=== PATIENT | female | born 1965 | race Caucasian/White ===

== ENCOUNTER → 2017-10-22 | Outpatient (CLI) | payer OTHER ==
[~2017-10-22] MED LIST: CIPR500 PO; METR500 PO
== END | disposition home or self-care (01) ==
LOC: LAB 18:05 → LAB SHORT 18:05
DX: R30.0 Dysuria (principal)
CPT/HCPCS: 87086

== ENCOUNTER → 2019-04-17 | Outpatient (CLI) | payer OTHER | END | disposition home or self-care (01) | LOC: LAB 18:35 → LAB SHORT 18:35 | DX: R30.0 Dysuria (principal) | CPT/HCPCS: 87077; 87086; 87186 ==

== ENCOUNTER 2019-11-07 15:30 | Inpatient (IN) | payer OTHER ==
[~2019-11-07] VITALS: Ht 175.3 cm; Wt 71.2 kg
[2019-11-07] MEDS ORDERED: BC (15:46)
[2019-11-07 16:20] LABS: BASOPHILS ABSOLUTE AUTO 0.04 K/mm3 (0.00-0.23); BASOPHILS PERCENT AUTO 0 % (0-2); EOSINOPHILS ABSOLUTE AUTO 0.11 K/mm3 (0.00-0.68); EOSINOPHILS PERCENT AUTO 1 % (0-6); Hematocrit 38.7 % (33.0-51.0); Hemoglobin 12.8 g/dL (11.5-16.0); IMMATURE GRAN ABSOLUTE AUTO 0.11 K/mm3 (0.00-0.10); IMMATURE GRAN PERCENT AUTO 1 % (0-1); LYMPHOCYTES ABSOLUTE AUTO 1.21 K/mm3 (0.84-5.20); LYMPHOCYTES PERCENT AUTO 10 % (21-46); MONOCYTES ABSOLUTE AUTO 0.99 K/mm3 (0.16-1.47); MONOCYTES PERCENT AUTO 8 % (4-13); Mean Corpuscular HGB 32.1 pg (26.0-34.0); Mean Corpuscular HGB Conc 33.1 g/dL (31.5-36.5); Mean Corpuscular Volume 97 fL (80-100); Mean Platelet Volume 10.1 fL (9.1-12.4); NEUTROPHILS ABSOLUTE AUTO 10.19 K/mm3 (1.96-9.15); NEUTROPHILS PERCENT AUTO 81 % (41-73); Platelet Count 363 K/mm3 (150-400); RDW Coefficient Variation 12.3 % (11.7-14.2); RDW Standard Deviation 44.4 fL (35.1-46.3); Red Blood Cell Count 3.99 M/mm3 (3.80-5.20); White Blood Cell Count 12.65 K/mm3 (4.00-11.30)
[2019-11-07 16:37] LABS: Alanine Aminotransfer (ALT/SGP 14 U/L (12-78); Albumin, Blood 2.7 g/dL (3.4-5.0); Albumin/Globulin Ratio 0.6 (0.8-1.8); Alk Phos 66 U/L (50-136); Anion Gap 8 mmol/L (6-16); Aspartate Aminotrans (AST/SGOT 10 U/L (12-37); Bilirubin, Total 0.4 mg/dL (0.1-1.0); Blood Urea Nitrogen 10 mg/dL (8-24); Bun/Creatinine Ratio 14.5 (12.0-20.0); CO2, Blood 26 mmol/L (21-32); Calcium, Blood 8.7 mg/dL (8.5-10.1); Chloride, Blood 100 mmol/L (98-108); Creatinine, Blood 0.69 mg/dL (0.40-1.00); Globulin, Blood 4.9 g/dL (2.2-4.0); Glomerular Filtration Rate >60 (60-); Glucose, Blood 109 mg/dL (70-99); Potassium, Blood 3.4 mmol/L (3.5-5.5); Sodium, Blood 134 mmol/L (136-145); Total Protein, Blood 7.6 g/dL (6.4-8.2)
[2019-11-07] MEDS ORDERED: LEVONEST1 EACH PO (18:27)
--- NOTE | 2019-11-07 20:05 | NUR ---
PT WAS A NEW ADMIT AT SHIFT CHANGE FOR PERF APPY WITH ABSCESS. PT HAD A SPIKE IN TEMP AND IS TACHY. CALLED DR. VEE AND UPDATED ON PT STATUS. SEE NEW ORDERS. PT WAS MEDICATED FOR FEVER AND FLUID RATE INCREASED. PT AND SPOUSE WERE EDUCTED AND UPDATED ON PLAN OF CARE. DR. VEE TO COME SEE PT IN AM AND DECIDE WHETHER OR NOT TO GO TO THE OPERATING ROOM OR PLACE A DRAIN.
--- NOTE | 2019-11-08 04:39 | NUR ---
PT DID WELL DURING NIGHT. PAIN IS MINIMAL AND DENIED NEED FOR NARCOTICS. DENIES N/V. CONT IVF AND IV ABX. MEDICATED WITH TYLENOL THIS AM FOR FEVER, WILL RECHECK. PLAN FOR OR TODAY OR DRAIN PLACEMENT. PT NPO SURGICAL PACKET ON CHART. CALL LIGHT IN REACH.
[2019-11-08 11:02] LABS: International Normalized Ratio 0.92; Prothrombin Time Results 9.9 Sec (9.7-11.5)
--- NOTE | 2019-11-08 14:05 | NUR ---
PT RETURNED TO UNIT FROM IMMAGING FOR PLACEMENT OF PIGTAIL DRAIN PLACED IN RLQ. PURULENT DRAINAGE PRESENT IN BAG. PT C/O PAIN, MEDICATED WITH 0.25MG DILAUDID PER EMAR, STILL COMPLAINING OF PAIN-MESSAGE LEFT FOR DR VEE REQUESTING TORADOL.
[2019-11-09 04:53] LABS: BASOPHILS ABSOLUTE AUTO 0.02 K/mm3 (0.00-0.23); BASOPHILS PERCENT AUTO 0 % (0-2); EOSINOPHILS ABSOLUTE AUTO 0.25 K/mm3 (0.00-0.68); EOSINOPHILS PERCENT AUTO 3 % (0-6); Hematocrit 31.7 % (33.0-51.0); Hemoglobin 10.2 g/dL (11.5-16.0); Mean Corpuscular HGB 31.8 pg (26.0-34.0); Mean Corpuscular HGB Conc 32.2 g/dL (31.5-36.5); Mean Corpuscular Volume 99 fL (80-100); Mean Platelet Volume 9.6 fL (9.1-12.4); Platelet Count 276 K/mm3 (150-400); RDW Coefficient Variation 12.7 % (11.7-14.2); RDW Standard Deviation 46.1 fL (35.1-46.3); Red Blood Cell Count 3.21 M/mm3 (3.80-5.20); White Blood Cell Count 7.51 K/mm3 (4.00-11.30)
--- NOTE | 2019-11-09 05:26 | NUR ---
SHIFT SUMMARY: MIKE IS A&OX4, INDEPENDENT IN THE ROOM. URESIL DRAINING SS/PURULENT THICK FLUID, SCANT AMOUNT. SHE RATES HER PAIN 5/10 FOR WHICH SHE HAS TAKEN APAP AND TORADOL, STATING THAT SHE DID NOT LIKE THE WAY THE DILAUDID MADE HER FEEL. SHE IS TOLERATING PO INTAKE WELL. SHE DENIES ANY DIFFICULTIES URINATING. SHE USES HER CALL LIGHT APPROPRIATELY. WILL REPORT TO DAY SHIFT RN.
[2019-11-09 05:36] LABS: IMMATURE GRAN ABSOLUTE AUTO 0.03 K/mm3 (0.00-0.10); IMMATURE GRAN PERCENT AUTO 0 % (0-1); LYMPHOCYTES PERCENT AUTO 19 % (21-46); MONOCYTES ABSOLUTE AUTO 0.53 K/mm3 (0.16-1.47); MONOCYTES PERCENT AUTO 7 % (4-13); NEUTROPHILS ABSOLUTE AUTO 5.28 K/mm3 (1.96-9.15); NEUTROPHILS PERCENT AUTO 70 % (41-73)
--- NOTE | 2019-11-09 19:42 | NUR ---
PT HAS BEEN STABLE THIS SHIFT. AFEBRILE. CONT ABX. SL FLUIDS. EATING AND DRINKING WELL. PT INDEP UP IN ROOM. PAIN CONTROLLED WITH TYLENOL. PT VOIDING WELL. FLATUS BUT NO BM. DRAIN IN RLQ CONT TO DRAIN PURULENT MILKY DRAINAGE. 40CC THIS SHIFT. PT CALLS APPROPRIATELY NEEDED.
--- NOTE | 2019-11-10 06:15 | NUR ---
PT VSS T/O NIGHT. DRAIN PUTTING OUT SMALL AMT PURULANT SS SHANE. PT C/O INC PRESSURE IN RLQ DRAIN SITE, PAIN MGD W/TYLENOL AND TORADOL PER PT REQ. PT UP INDEP IN ROOM, IS VOIDING URINE, REP +FLATUS AND LIQ BM. ABX CONT PER ORDERS. PT USING CALL LIGHT FOR ASSISTANCE, WILL CONT TO MONITOR UNTIL REP GIVEN TO ONCOMING RN.
[2019-11-10] MEDS ORDERED: AMOCLA875 PO (17:37)
[2019-11-10] MEDS ORDERED: ACET325 PO (17:37)
--- NOTE | 2019-11-10 18:30 | NUR ---
DISCHARGE PT PROVIDED WITH WRITTEN AND VERBAL DISCHARGE INSTRUCTIONS, SHE REPORTED UNDERSTANDING. PT EDUCATED ABOUT HOW TO EMPTY HER DRAIN AND TO MEASURE AND RECORD OUTPUT. VSS. PT IS AWAITING HER TO TAKE HER HOME. PT'S AUGMENTIN WAS CALLED TO PT'S PHARMACY.
== END 2019-11-10 18:59 | disposition home or self-care (01) | DRG 373 ==
LOC: ER 15:30 → SURS 17:50
PROVIDERS: Physician Assistant; ADMIT Surgery
PROC: 0W9G30Z Drainage of Peritoneal Cavity with Drainage Device, Percutaneous Approach (ICD-10-PCS; principal; 2019-11-08)
DX: K35.33 Acute appendicitis with perforation, localized peritonitis, and gangrene, with abscess (principal)
CPT/HCPCS: 36415; 49405; 74177; 80053; 83690; 85025; 85610; 87070; 87075; 87205; 96365-59; 96375; 99285-25; A9270; J1170; J1885; J2405; J2543; J7030; J7120; Q9967

== ENCOUNTER 2020-01-13 07:44 | Day surgery (SDC) | payer OTHER ==
[~2020-01-13] VITALS: Ht 175.3 cm; Wt 71.3 kg
[~2020-01-13 07:44] MED LIST changes: +ACET325 PO; +AMOCLA875 PO; +BC; +LEVONEST1 EACH PO
== END 2020-01-13 09:53 | disposition home or self-care (01) ==
LOC: ORSCSDS 07:44
PROVIDERS: Surgery
PROC: 0DJD8ZZ Inspection of Lower Intestinal Tract, Via Natural or Artificial Opening Endoscopic (ICD-10-PCS; principal; 2020-01-13 09:00)
DX: Z12.11 Encounter for screening for malignant neoplasm of colon (principal); Z79.899 Other long term (current) drug therapy
CPT/HCPCS: J2704; J7120

== ENCOUNTER 2020-01-20 06:08 | Day surgery (SDC) | payer OTHER ==
[~2020-01-20] VITALS: Ht 175.3 cm; Wt 72.8 kg
--- NOTE | 2020-01-20 06:59 | NUR ---
Ambulatory in Day Surgery History, Chart, Medications and Allergies reviewed before start of procedure. Lungs clear T/O to Auscultation. Pre-Op teaching done. Pt verbalizes understanding.
--- NOTE | 2020-01-20 16:18 | NUR ---
SHIFT SUMMARY: PATIENT IS POD 0 FOR A LAP APPY. SHE HAS BEEN SLEEPY BUT AROUSABLE. SHE STATES SHE IS STILL DIZZY FROM THE "MEDS THEY GAVE ME BACK THERE". SHE HAS BEEN ABLE TO VOID. SHE HAS BEEN ABLE TO WALK TO THE BATHROOM BY TAKING HER TIME TO DANLE/GET OUT OF BED. SHE DOES NOT COMPLAINED OF PAIN DURING THE SHIFT YET. SHE IS ABLE TO ANSWER QUESTIONS IN A MEANINGFUL WAY. HER VITALS ARE STABLE AND IS ON ROOM AIR. HOPING SHE WILL HAVE SOME OF HER DINNER SOON SINCE FOR LUNCH SHE WAS TOO DIZZY TO WANT ANYTHING. WILL CONTINUE TO MONITOR PATIENT UNTIL NIGHTSHIFT NURSE COMES TO RECIEVE REPORT.
--- NOTE | 2020-01-20 19:30 | NUR ---
PT ALERT, STATES FEELING OK. DENIES ANY ABD PAIN OR N/V. BIGGEST C/O IS A [place]PTON WITH SOME DIZZINESS SHE THINKS IS FROM ANESTHESIA. ABD DRESSINGS ARE CLEAN DRY INTACT.
--- NOTE | 2020-01-21 04:38 | NUR ---
POD 1 S/P LAP APPY. PT STATES STILL ISN'T FEELIG VERY WELL AND HAS SOME GAS PAINS THIS MORNING. PT HAS BEEN UP AMBULATING IN HALLWAY. REFUSING ANY NARCOTICS BUT DID MEDICATE WITH MOTRIN. DENIES ANY N/V AND TOLERATING LITTLE AMTS OF CLEARS. CONT IVF, VOIDING WELL. DRESSINGS STILL DRY INTACT. POSSIBLE DC HOME TODAY.
[2020-01-21] MEDS ORDERED: Norco 5-325 Ta1 EACH PO (08:39)
[2020-01-21] MEDS ORDERED: IBUP400 PO (08:39)
--- NOTE | 2020-01-21 09:09 | NUR ---
DISCHARGE NOTE: PATIENT WAS EDUCATED ON DISCHARGE INSTRUCTIONS. SHE HAS NO QUESTIONS OR CONCERNS AT THIS TIME. HER VITALS ARE WITHIN NORMAL LIMITS AND IS ON ROOM AIR. SHE IS ALERT AND ORIENTED X4. SHE HAS BEEN ABLE TO VOID AND PASS GAS. SHE HAS BEEN ABLE TO AMBULATE DOWN THE HALLS AND IN HER ROOM. HER NUTRITION HAS IMPROVED. PAIN HAS BEEN MANAGED. PERSCRIPTIONS WERE GIVEN TO PATIENT. IV WAS TAKEN OUT AND WAS NORMAL. SHE HAS BEEN A GREAT PATIENT TO HAVE TAKEN CARE OF. SHE WILL BE WALKING OUT WITH FAMILY WHO WILL COME TO PICK HER UP.
== END 2020-01-21 09:53 | disposition home or self-care (01) ==
LOC: ORSCMMR 06:08 → ORD 07:30 → SURS 10:47 → ORSCMMR 10:47 → SURS 01-21 09:53 → ORSCMMR 01-21 09:53
PROVIDERS: Surgery
PROC: 0DTJ4ZZ Resection of Appendix, Percutaneous Endoscopic Approach (ICD-10-PCS; principal; 2020-01-20 07:30)
DX: K35.33 Acute appendicitis with perforation, localized peritonitis, and gangrene, with abscess (principal)
CPT/HCPCS: 88307; J0330; J0690; J1650; J2250; J2405; J2704; J2710; J3010; J7050; J7120

== ENCOUNTER 2022-04-02 06:20 | Day surgery (SDC) | payer OTHER ==
[~2022-04-02] VITALS: Ht 175.3 cm; Wt 72.2 kg
[~2022-04-02 06:20] MED LIST changes: +IBUP400 PO; +Norco 5-325 Ta1 EACH PO
--- NOTE | 2022-04-02 07:37 | NUR ---
04/02/22 0737 Olivia Pillai 0733 TIME OUT AND SITE CHECK DONE WITH DR LISA FOR ISB.
--- NOTE | 2022-04-02 08:12 | NUR ---
04/02/22 0812 YSABEL HODGES 1MG OF EPI (1MG/1ML) ADDED TO 1BAG OF 3000MLS OF LR TO USE DURING CASE FOR IRRIGATION.
--- NOTE | 2022-04-02 10:37 | NUR ---
04/02/22 1037 Bhaskar Boyle PTCOMPLAINT OF NAUSEA. GIVEN REGLAN 10MG PER ORDER. PT IS AROUSING MORE EASY AT THIS TIME.POLAR PACK WAS STARTED EARILER.
== END 2022-04-02 11:40 | disposition home or self-care (01) ==
LOC: ORSCSDS 06:20
PROVIDERS: Orthopaedic Surgery
PROC: 0RNJ4ZZ Release Right Shoulder Joint, Percutaneous Endoscopic Approach (ICD-10-PCS; principal; 2022-04-02 07:30)
PROC: 0LQ14ZZ Repair Right Shoulder Tendon, Percutaneous Endoscopic Approach (ICD-10-PCS; principal; 2022-04-02 07:30)
DX: M75.111 Incomplete rotator cuff tear or rupture of right shoulder, not specified as traumatic (principal); M75.41 Impingement syndrome of right shoulder
CPT/HCPCS: C1713; J0171; J0690; J1100; J1885; J2250; J2405; J2704; J2765; J3010; J7120